=== PATIENT | male | born 1955 | race Caucasian/White ===

== ENCOUNTER → 2016-06-11 | Outpatient (CLI) | payer OTHER | LOC: FIMAGING 17:31 | PROVIDERS: ATTEND Physician Assistant Surgical | DX: M47.896 Other spondylosis, lumbar region (principal); Z98.890 Other specified postprocedural states ==

== ENCOUNTER → 2016-06-12 | Outpatient (CLI) | payer OTHER ==
[~2016-06-12] MED LIST: GADOBUTROL 10 ML VIAL IVP ONE
== END ==
LOC: FIMAGING 10:23
PROVIDERS: ATTEND Physician Assistant Surgical
DX: M51.46 Schmorl's nodes, lumbar region (principal); R60.0 Localized edema; Z98.890 Other specified postprocedural states
CPT/HCPCS: A9585

== ENCOUNTER → 2016-09-02 | Outpatient (CLI) | payer OTHER | LOC: FIMAGING 13:18 | PROVIDERS: ATTEND Orthopaedic Surgery Sports Medicine | DX: S43.431A Superior glenoid labrum lesion of right shoulder, initial encounter (principal); S83.241A Other tear of medial meniscus, current injury, right knee, initial encounter; M67.461 Ganglion, right knee; M25.461 Effusion, right knee; R93.6 Abnormal findings on diagnostic imaging of limbs; Y99.0 Civilian activity done for income or pay; W23.0XXA Caught, crushed, jammed, or pinched between moving objects, initial encounter ==

== ENCOUNTER → 2017-05-08 | Outpatient (CLI) | payer OTHER | LOC: FIMAGING 07:55 | PROVIDERS: ATTEND Physician Assistant Surgical | DX: M51.36 Other intervertebral disc degeneration, lumbar region (principal); M46.96 Unspecified inflammatory spondylopathy, lumbar region; M48.062 Spinal stenosis, lumbar region with neurogenic claudication; M46.97 Unspecified inflammatory spondylopathy, lumbosacral region | CPT/HCPCS: A9585 ==

== ENCOUNTER → 2018-01-06 | Outpatient (CLI) | payer OTHER | LOC: FIMAGING 17:25 | DX: M75.102 Unspecified rotator cuff tear or rupture of left shoulder, not specified as traumatic (principal); M75.32 Calcific tendinitis of left shoulder; M75.52 Bursitis of left shoulder ==

== ENCOUNTER → 2018-02-20 | Outpatient (CLI) | payer OTHER | LOC: FIMAGING 16:54 | PROVIDERS: ATTEND Orthopaedic Surgery Orthopaedic Surgery of the Spine | DX: M46.92 Unspecified inflammatory spondylopathy, cervical region (principal); M48.02 Spinal stenosis, cervical region; M50.221 Other cervical disc displacement at C4-C5 level; M54.9 Dorsalgia, unspecified ==

== ENCOUNTER → 2018-07-24 | Outpatient (CLI) | payer OTHER | LOC: BHFA 08:30 | PROVIDERS: ATTEND Internal Medicine Cardiovascular Disease | DX: R55 Syncope and collapse (principal) | CPT/HCPCS: 78452; 93017; 93306; 93880; A9500; J2785 ==